=== PATIENT | female | born 1995 | race Caucasian/White ===

== ENCOUNTER 2018-01-24 17:12 | Emergency (ER) | payer OTHER ==
[~2018-01-24] VITALS: Ht 152.4 cm; Wt 50.4 kg
[2018-01-24 17:17] VITALS: Ht 152.4 cm; Wt 50.4 kg
[2018-01-24 19:02] LABS: BASOPHIL % 0.6 % (0-2); PLATELET COUNT 324 x10^3mcL (130-400); RED CELL DISTRIBUTION WIDTH 12.7 % (11.5-14.5)
[2018-01-24 19:30] VITALS: BP 124/92
== END 2018-01-24 19:54 | disposition home or self-care (01) ==
LOC: ED 17:12
PROVIDERS: Emergency Medicine
DX: N93.9 Abnormal uterine and vaginal bleeding, unspecified (principal); E28.2 Polycystic ovarian syndrome
CPT/HCPCS: 36415

== ENCOUNTER 2018-12-13 14:12 | Emergency (ER) | payer OTHER ==
[~2018-12-13] VITALS: Ht 154.9 cm; Wt 58.1 kg
[2018-12-13 14:13] VITALS: BP 128/89; Ht 154.9 cm; Wt 58.1 kg
== END 2018-12-13 14:57 | disposition home or self-care (01) ==
LOC: ED 14:12
DX: Z77.098 Contact with and (suspected) exposure to other hazardous, chiefly nonmedicinal, chemicals (principal)
CPT/HCPCS: J1885

== ENCOUNTER 2019-01-08 15:22 | Emergency (ER) | payer OTHER ==
[~2019-01-08] VITALS: Ht 154.9 cm; Wt 50.1 kg
[2019-01-08 15:40] VITALS: Ht 154.9 cm; Wt 50.1 kg
[2019-01-08 17:55] VITALS: BP 131/87
== END 2019-01-08 17:55 | disposition home or self-care (01) ==
LOC: ED 15:22
DX: B07.8 Other viral warts (principal)